=== PATIENT | female | born 1975 | race African-American/Black ===

== ENCOUNTER 2016-11-03 22:07 | Emergency (ER) | payer OTHER ==
[~2016-11-03 22:07] MED LIST: ANTIVERT PO; BIRTH CONTROL PILL; DICLOFENAC PO; FLEXERIL PO; FLONASE 0.05% N16 G1; KEFLEX500 M2 PO; NO MEDICATIONS
[2016-11-03 22:18] LABS: INFLUENZA A NEG (NEG); INFLUENZA B NEG (NEG)
== END 2016-11-03 23:04 | disposition home or self-care (01) ==
LOC: SED 22:07
PROVIDERS: Physician Assistant Medical
DX: M79.1 Myalgia (principal); Z88.0 Allergy status to penicillin; Z88.2 Allergy status to sulfonamides; Z88.6 Allergy status to analgesic agent
CPT/HCPCS: 87651; 87804; 87880; 99282